=== PATIENT | female | born 1990 | race African-American/Black ===

== ENCOUNTER 2021-03-14 17:59 | Emergency (ER) | payer OTHER ==
[2021-03-14 18:27] VITALS: BP 113/80; PULSE 80; TEMP 98; BMI 42.4
[2021-03-14] MEDS ORDERED: SODIUM CHLORIDE 1,000 ML IV STA (19:46)
[2021-03-14] MEDS ORDERED: ONDANSETRON 4 MG/2 ML VIAL IVPUSH ONE (19:46)
[2021-03-14] MEDS ORDERED: FAMOTIDINE 20 MG/50 ML IVPB 20 MG/50 ML MG IVPB ONE ×2 (19:46→20:14)
[2021-03-14] MEDS ORDERED: ACETAMINOPHEN 1000 MG/100 ML VIAL (NON FORMULARY) IVPB ONE (19:46)
[2021-03-14] MEDS ORDERED: ACETAMINOPHEN INJECTION 100 ML IVPB ONE (20:14)
[2021-03-14 21:06] LABS: BASO % 1.1 % (0-2.0); EOS % 2.4 % (0-4.5); HEMATOCRIT 38.6 % (32.4-45.2); HEMOGLOBIN 12.9 GM/dL (10.7-15.3); MCH 27.7 pg (25.7-33.7); MCHC 33.5 g/dl (32.0-36.0); MEAN CELL VOLUME 82.8 fl (80-96); MEAN PLT VOLUME 10.1 fl (7.5-11.1); NEUT % 49.5 % (42.8-82.8); PLATELET COUNT 257 10^3/uL (134-434); RBC 4.66 M/mm3 (3.60-5.2); RDW 14.2 % (11.6-15.6); WHITE BLOOD COUNT 5.6 K/mm3 (4.0-10.0)
[2021-03-14 21:09] LABS: EPI CELLS 36 /uL (0-25.1); HYALINE CASTS 2 /uL (0-3.1); PH,URINE 5.5 (5.0-8.0); URINE APPEARANCE CLEAR; URINE BACTERIA 222 /uL (0-1359); URINE BILIRUBIN NEGATIVE (NEGATIVE); URINE COLOR DK YELLOW; URINE GLUCOSE (UA) NEGATIVE (NEGATIVE); URINE KETONE 1+ (NEGATIVE); URINE LEUK ESTERASE NEGATIVE (NEGATIVE); URINE NITRITE NEGATIVE (NEGATIVE); URINE PROTEIN TRACE (NEGATIVE); URINE RBC 13 /uL (0-23.9); URINE WBC 11 /uL (0-25.8)
[2021-03-14 21:16] LABS: HCG,QUALITATIVE URINE Negative
[2021-03-14 21:21] LABS: CHLORIDE 104 mmol/L (98-107); SODIUM 139 mmol/L (136-145)
[2021-03-14 21:23] LABS: ALBUMIN 3.9 g/dl (3.4-5.0); ANION GAP 12 MMOL/L (8-16); BLOOD UREA NITROGEN 9.9 mg/dL (7-18); CO2 22 mmol/L (21-32)
[2021-03-14 21:24] LABS: LIPASE 227 U/L (73-393)
[2021-03-14 21:26] LABS: CREATININE 0.6 mg/dL (0.55-1.3); GLUCOSE,RANDOM 76 mg/dL (74-106); SGOT/AST 60 U/L (15-37); SGPT/ALT 60 U/L (13-61)
[2021-03-14 21:28] LABS: BILIRUBIN,TOTAL 0.3 mg/dL (0.2-1); TOT PROT 9.1 g/dl (6.4-8.2)
[2021-03-14 21:29] LABS: ALK PHOS 72 U/L (45-117)
== END 2021-03-14 22:16 | disposition home or self-care (01) ==
LOC: JER 17:59
PROC: 3E0333Z Introduction of Anti-inflammatory into Peripheral Vein, Percutaneous Approach (ICD-10-PCS; principal; 2021-03-14)
PROC: 3E033GC Introduction of Other Therapeutic Substance into Peripheral Vein, Percutaneous Approach (ICD-10-PCS; 2021-03-14)
PROC: 3E0337Z Introduction of Electrolytic and Water Balance Substance into Peripheral Vein, Percutaneous Approach (ICD-10-PCS; 2021-03-14)
DX: R10.13 Epigastric pain (principal)
CPT/HCPCS: 36415; 76705-TC; 80053; 81003; 82550; 82553; 83690; 84484; 84703; 85025; 87086; 96361; 96374; 96375; 99285-25; C9803; J0131; U0003; U0005